=== PATIENT | female | born 1925 | race Caucasian/White ===

== ENCOUNTER 2017-01-03 13:46 | Inpatient (IN) | payer MEDICARE, BC ==
--- NOTE | ~2017-01-03 | NM18 ---
[facility] A Service of [facility] & [facility] RADIOLOGY TEXT RESULTS PATIENT: DARIAN DARBY LOCATION: [facility] 230-01 : [birth year] UNIT #: [id number] AGE: [address]: Claudia Powers MD SEX: F ORDER DR: [id number] [facility] [address]. [place], [place] [address] [id number] MR#: [id number] Acc #: [id number] NAME: DARIAN DARBY : 1925 SEX: F STUDY DATE/TIME: 01/05/2017 9:29 UNIT: [facility] ROOM: 230 STUDY DESCRIPTION: NM GI Bleeding Scan Attending Physician: Claudia Powers M.D. Ordering Physician: Claudia Powers M.D. Primary Care Physician: Shan Ruano II, M.D. MEDICAL IMAGING REPORT This report is preliminary unless electronic signature is present EXAM Tagged red blood cell scan. INDICATION Bloody stool with clots. This started 2 days ago, and the patient has had 3 recurrent bouts. The patient was brought to the emergency room today. TECHNIQUE Patient was administered 26.5 mCi of technetium 99m labeled red blood cells and sequential images were obtained over the abdomen. FINDINGS No convincing evidence of mobile radiotracer accumulation is seen to suggest active GI bleeding at this time. Radiotracer accumulation appears physiologic. IMPRESSION No convincing evidence of active GI bleeding at this time. Dictated by... Margy Reynolds M.D. THIS IS AN ELECTRONICALLY VERIFIED REPORT Margy Reynolds M.D. at 01/05/2017 5:53 PM AFF/tiffani TD: 01/05/2017 16:16 JOB #: [id number] MEDICAL IMAGING REPORT Page 1 of 1 COPY
--- NOTE | ~2017-01-03 | CR72 ---
[facility] A Service of [facility] & [facility] RADIOLOGY TEXT RESULTS PATIENT: DARIAN DARBY LOCATION: [address]09-07 : [birth year] UNIT #: [id number] AGE: [address]: Claudia Powers MD SEX: F ORDER DR: [id number] [facility] [address]. [place], [place] [address] [id number] I MR#: [id number] Acc #: [id number] NAME: DARIAN DARBY : 1925 SEX: F STUDY DATE/TIME: 01/03/2017 18:03 UNIT: [facility] ROOM: [facility] STUDY DESCRIPTION: CR Chest Single View Portable Attending Physician: Yahaira Solomon M.D. Ordering Physician: Yahaira Solomon M.D. Primary Care Physician: Shan Ruano II, M.D. MEDICAL IMAGING REPORT This report is preliminary unless electronic signature is present EXAM Portable chest INDICATIONS Cough and chest congestion today. Shortness of air today. TECHNIQUE Frontal view chest. FINDINGS Heart size within normal limits. Linear scarring or atelectasis in the medial left lung base. Otherwise, lungs are clear. No visible pleural fluid or pneumothorax. IMPRESSION Linear atelectasis or scar in the left lung base. Otherwise, no active process. Dictated by... Keyshawn Trujillo M.D. THIS IS AN ELECTRONICALLY VERIFIED REPORT Keyshawn Trujillo M.D. at 01/04/2017 2:25 PM EED/pcl TD: 01/03/2017 22:13 JOB #: [id number] MEDICAL IMAGING REPORT Page 1 of 1 COPY
--- NOTE | ~2017-01-03 | CO ---
Unit #: [id number] #: [id number] Patient: DARIAN DARBY [id number] [facility]. [place], [place] [address] [id number] I MR#: [id number] NAME: DARIAN DARBY ROOM: 230 Age: 89 Sex: F Admission Date: 01/03/2017 : 1925 Attending Physician: Claudia Powers M.D. Primary Care Physician: Shan Ruano II, M.D. Consultation Date: 01/03/2017 CONSULTATION REPORT CHIEF COMPLAINT GI bleed. HISTORY OF PRESENT ILLNESS This is an 89-year-old lady, who is extremely hard of hearing. Most of the history was obtained from the family. She has an approximately 12-hour history of dark stools with some old blood in it. She initially presented to [facility] and was transferred here, so that workup could be completed. She has recently been taking ibuprofen and aspirin. She has had one prior episode of this approximately 5 years ago and underwent upper and lower endoscopy. Upper endoscopy showed gastritis at that time. She denies any abdominal pain, nausea, or vomiting. PAST SURGICAL HISTORY Significant for cholecystectomy, appendectomy, and hysterectomy. PAST MEDICAL HISTORY She has a history of PE, but is no longer on anticoagulants. She has also sustained a hip fracture, which required her to move into a chcf and she has reflux, hypertension, and congestive heart failure. SOCIAL HISTORY She denies any tobacco or alcohol use, and again she is in a wheelchair in a chcf. MEDICATIONS Please see med rec list for list of medications. FAMILY HISTORY Negative for cancer. REVIEW OF SYSTEMS Negative for weight loss or jaundice and she has had some fatigue and again is hard of hearing. Otherwise, it is as above. PHYSICAL EXAMINATION VITAL SIGNS: Her heart rate is in the 100s. Her systolic blood pressure is 120s. GENERAL: She is in no acute distress. HEENT: Pupils are equal, react to light, and accommodation, and her extraocular muscles are intact. NECK: Without masses or bruits. LUNGS: Show good breath sounds bilaterally with equal air exchange. Unit #: [id number] #: [id number] Patient: DARIAN DARBY CARDIAC: Shows regular rate and rhythm without murmur. ABDOMEN: Soft, nondistended, and nontender with no organomegaly. EXTREMITIES: Without edema or cyanosis. NEUROLOGIC: She is alert and oriented. There are no focal deficits. DIAGNOSTIC STUDIES LABORATORY RESULTS: Hemoglobin is 8. OVERALL IMPRESSION This is an 89-year-old lady, who has severe anemia and evidence of a GI bleed that clinically is stable. She is going to have serial hemoglobins and we will resuscitate her overnight and plan on upper endoscopy in the morning. Obviously, we will do this sooner if she shows any ongoing bleeding. Dictated by... Darshan Obregon III, M.D. VCL/tyler TD: 01/04/2017 22:37 JOB #: [id number] CONSULTATION REPORT Page 1 of 1 X Darshan Obregon III, MD CONSULTATION REPORT
--- NOTE | ~2017-01-03 | EKG ---
PATIENT: DARIAN DARBY UNIT #: [id number] Ventricular Rate: 106 BPM Atrial Rate: 106 BPM P-R Interval: 186 ms QRS Duration: 118 ms Q-T Interval: 352 ms QTC Calculation(Bezet): 467 ms P Orlando: 66 degrees Calculated R Orlando: -26 degrees Calculated T Orlando: 74 degrees Diagnosis Line: Sinus tachycardia Diagnosis Line: Nonspecific ST and T wave abnormality Diagnosis Line: Abnormal ECG Diagnosis Line: No previous ECGs available Diagnosis Line: Confirmed by ARTIE KNOWLES MD ([id number]) on 01/04/2017 Diagnosis Line: 6:39:29 PM INTERPRETING MD: ELENI RUSSELL
--- NOTE | ~2017-01-03 | DS ---
Unit #: [id number] #: [id number] Patient: DARIAN DARBY [id number] [facility] [address]. [place], [place] [address] [id number] I MR#: [id number] NAME: DARIAN DARBY ROOM: 230 Age: 89 Sex: F Admission Date: 01/03/2017 : 1925 Discharge Date: 01/06/2017 Attending Physician: Claudia Powers M.D. Primary Care Physician: Shan Ruano II, M.D. DISCHARGE SUMMARY REASON FOR ADMISSION Rectal bleeding/diarrhea. HISTORY OF PRESENT ILLNESS/HOSPITAL COURSE The patient is a very pleasant 89-year-old female with an underlying history of hypertension, hyperlipidemia, heart failure, prior history of PE on chronic anticoagulation, GERD, who essentially is bedbound with a history of severe chronic immobility syndrome for almost two years who presented secondary to bright red blood per rectum. Apparently, she was seen at an outside facility, [facility], and subsequently transferred to [facility] for further evaluation. Initial hemoglobin was noted to be 8.5. Consultation was subsequently placed to [facility] for evaluation. Through this hospital course, the patient underwent routine labs. Today, at time of discharge, her hemoglobin currently stands at 8.8. She has had no episodes of bright red blood per rectum while she has been here. She did undergo an upper GI endoscopy while here per surgical services and did reveal mild gastritis but no acute bleeding was noted. Patient also underwent tagged RBC bleeding scan as well through nuclear medicine which was negative. This was performed on 01/05/2017. Secondary to associated comorbid conditions, as well as quality of life, consideration was given for colonoscopy; however, because of above, it was elected the patient should not have colonoscopy while here. This was discussed extensively with patient's son and daughter. Clinically speaking, she is stable for discharge. We will make appropriate arrangements for her to be transitioned back to the [facility]. At time of discharge, her aspirin will be discontinued. Overall, her prognosis is guarded long-term. Clinically speaking, she is currently stable but should she have recurrent episodes consideration should be given for hospice care moving forward. FINAL DISCHARGE DIAGNOSES 1. Bright red blood per rectum. 2. Mild gastritis. 3. Iron-deficiency anemia with decreased MCV at 69. 4. Severe chronic immobility syndrome. Essentially bedbound for almost 18 months. 5. Prior history of left lower extremity DVT. Unit #: [id number] #: [id number] Patient: DARIAN DARBY 6. Prior history of pulmonary embolism. 7. Prior history of heart failure with unclear ejection fraction. 8. Hyperlipidemia. 9. Hypertension. 10. Morbid obesity. FINAL DISCHARGE MEDICATIONS 1. Lasix 40 mg p.o. b.i.d. 2. Zaroxolyn 5 mg Sunday and . 3. Ferrous gluconate 324 mg p.o. daily. 4. Multivitamin daily. 5. Diclofenac topical b.i.d. to knees. 6. Aldactone 25 mg daily. 7. Omeprazole 20 mg p.o. daily. 8. Potassium chloride 20 mEq p.o. daily. DISCHARGE CONDITION Stable. DISCHARGE DISPOSITION Long-term care. Dictated by... Neha Valera/jairo TD: 01/06/2017 13:49 JOB #: [id number] DISCHARGE SUMMARY Page 1 of 1 X Claudia Powers MD X DISCHARGE SUMMARY
--- NOTE | ~2017-01-03 | HP ---
Unit #: [id number] #: [id number] Patient: DARIAN DARBY [id number] [address] [address] [id number] I MR#: [id number] NAME: DARIAN DARBY ROOM: [facility] Age: 89 Sex: F Admission Date: 01/03/2017 : 1925 Attending Physician: Yahaira Solomon M.D. Primary Care Physician: Shan Ruano II, M.D. HISTORY AND PHYSICAL CHIEF COMPLAINT Rectal bleeding, diarrhea. HISTORY OF PRESENT ILLNESS The patient is an 89-year-old female with past medical history of hypertension, hyperlipidemia, CHF, PE, GERD who presented to [facility] for evaluation of the above. History is obtained from chart review and discussion with ER staff as well as from the patient and her daughter who was at bedside. Apparently, the patient was in her usual state of health until the day of admission when she had bloody diarrhea. She reportedly had three bouts of bloody diarrhea at the shelter with clots. She was sent to the emergency department for further evaluation. The patient denies any abdominal pain. No chest pain. No fever. She has had a cough over the past couple of days. She has also had loose stool for the past one to two days but no blood until today. In the emergency department, initial pulse and blood pressure were 124 and 108/63 respectively. Initial hemoglobin was 8.5. Rectal exam was heme positive. She was transferred to [facility] for admission. PAST MEDICAL HISTORY 1. Admission to [facility] in June 2015 following a fall with hip fracture. She underwent surgery during that admission. 2. Hypertension. 3. Hyperlipidemia. 4. Congestive heart failure with unknown ejection fraction. 5. PE, the patient was previously on Coumadin. She was then transitioned to Eliquis and has been on only aspirin for the past six to eight months. 6. Gastroesophageal reflux disease. PAST SURGICAL HISTORY 1. Hip surgery. 2. Thyroid surgery. 3. Hysterectomy. 4. Cholecystectomy. 5. Appendectomy. 6. EGD and colonoscopy in 2011 at [facility]. Per the family, the colonoscopy was negative. EGD showed gastritis and she was placed on omeprazole at that time. Unit #: [id number] #: [id number] Patient: DARIAN DARBY SOCIAL HISTORY The patient is currently at a shelter. She is mostly in a wheelchair. There is no tobacco or alcohol use. CODE STATUS Her code status is a do not resuscitate. FAMILY HISTORY Noncontributory secondary to age. ALLERGIES There are no allergies known. HOME MEDICATIONS 1. Aspirin 81 mg daily. 2. Furosemide 40 mg twice daily. 3. Aldactone 25 mg daily. 4. Iron daily. 5. Lactulose unknown frequency. 6. Miconazole cream daily. 7. Potassium 20 mEq daily. 8. Omeprazole 20 mg daily. 9. Bisacodyl 5 mg daily p.r.n. 10. Diclofenac topically daily. 11. Milk of Magnesia at bedtime p.r.n. 12. Multivitamin daily. REVIEW OF SYSTEMS A complete review of systems is negative except as indicated in the HPI. DIAGNOSTIC STUDIES LABORATORY: Comprehensive metabolic panel notable for glucose of 131, BUN and creatinine 25 and 0.85 respectively. Complete blood count notable for white blood cell count of 14, hemoglobin and hematocrit are 8.1 and 26.4 respectively, MCV 64.6, RDW 23.3. I was told that hemoglobin was initially 8.4, but looks like repeat was 8.1. PHYSICAL EXAMINATION VITAL SIGNS: Temperature 97.9, pulse 124, respirations 20, blood pressure 108/63, oxygen saturation 98% on room air. GENERAL: The patient is a very pleasant female who is awake and alert in no acute distress. HEENT: The head is atraumatic. Conjunctivae are somewhat pale. Mucous membranes are moist. NECK: Supple. Trachea is midline. CARDIOVASCULAR: Regular rate and rhythm. LUNGS: Clear to auscultation bilaterally with no increased work of breathing. ABDOMEN: Soft, nontender with bowel sounds present in all four quadrants. RECTAL: Heme positive per my discussion with ER staff. EXTREMITIES: Show edema. They are nontender. NEUROLOGIC: The patient is awake and alert. She is oriented x3. She follows commands. PSYCHIATRIC: Mood and affect are normal. The patient is cooperative. SKIN: Generally pale. ASSESSMENT The patient is a 89-year-old female with: Unit #: [id number] #: [id number] Patient: DARIAN DARBY 1. Gastrointestinal bleed: The patient is currently receiving 2 units of packed red blood cells. 2. Acute blood loss anemia: Patient's hemoglobin per record review was 9.2 on October 11 and December 20, 2016. It is 8.5 today but did drop to 8.1. 3. Hypertension. 4. Hyperlipidemia. 5. Congestive heart failure with unknown ejection fraction. 6. History of pulmonary embolus not on chronic anticoagulation. 7. Gastroesophageal reflux disease. PLAN 1. Admit to intensive care unit. 2. NPO for endoscopy. 3. Consult Dr. Obregon regarding gastrointestinal bleed. 4. Hemoglobin and hematocrit one hour after transfusion q.6 hours. 5. Iron studies, B12, and folate. 6. Check EKG and cardiac enzymes. 7. Repeat labs now including INR. 8. SCDs for deep venous thrombosis prophylaxis. 9. Protonix for gastrointestinal prophylaxis. 10. P.r.n. Zofran. 11. Hold aspirin. 12. Regarding code status, the patient is a do not resuscitate. Thirty one minutes critical care time spent in the care of this patient (3:30 to 4:01 p.m.). Dictated by Neha Ryan/hari TD: 01/03/2017 17:22 JOB #: [id number] HISTORY AND PHYSICAL Page 1 of 1 X Yahaira Solomon MD X HISTORY AND PHYSICAL
--- NOTE | ~2017-01-03 | OR ---
Unit #: [id number] #: [id number] Patient: DARIAN DARBY [id number] [address] [address] [id number] I MR#: [id number] NAME: DARIAN DARBY ROOM: 230 Date of Procedure: 01/04/2017 Admission Date: 01/03/2017 Surgeon: Brian Sepulveda M.D. : 1925 Attending Physician: Claudia Powers M.D. Primary Care Physician: Shan Ruano II, M.D. OPERATIVE REPORT PREOPERATIVE DIAGNOSES 1. Anemia. 2. Rectal bleeding. POSTOPERATIVE DIAGNOSES 1. Anemia. 2. Rectal bleeding. PROCEDURE PERFORMED Esophagogastroduodenoscopy. ANESTHESIA Monitored anesthesia care. FINDINGS The patient was found to have mild gastritis. No blood was present in the stomach. SPECIMENS None. COMPLICATIONS None apparent. CONDITION The patient tolerated the procedure well. INDICATIONS FOR PROCEDURE The patient is a 89-year-old white female, who presents at this time with anemia as well as maroon-colored stools. She presents at this time for evaluation by upper endoscopy. DESCRIPTION OF PROCEDURE After obtaining informed consent, the patient, who was in the intensive care unit, was placed in the left lateral decubitus position. After adequate monitored anesthesia care, had the endoscope placed through the mouth in the upper esophagus under direct vision. It was advanced to the second portion of the duodenum without difficulty with the lumen always in view. The duodenum was normal as was the duodenal bulb. The pylorus opened normally. There was no distal gastritis present. No ulcers were seen. There was no blood present in the duodenum or in the stomach. On retroflexion back to the GE junction, there was no hiatal hernia seen and Unit #: [id number] #: [id number] Patient: DARIAN ADRBY no abnormality found in the proximal third, middle third, or incisura. On pulling back above the GE junction, there was no stenosis, stricture, or neoplasm seen. The remaining portion of the esophagus was within normal limits. Laryngeal structures were grossly normal as viewed from above. The scope was removed without difficulty. The patient tolerated the procedure well. RECOMMENDATIONS Proceed with prep for colonoscopy. All results were fully discussed with the patient's daughter. Dictated by... Neha Capps/tyler TD: 01/05/2017 04:13 JOB #: [id number] CC: [facility] OPERATIVE REPORT Page 1 of 1 X Brian Sepulveda MD X PROCEDURE OPERATIVE NOTE
[2017-01-03] MEDS ORDERED: ASPIRIN81 M2 PO (15:27)
[2017-01-03] MEDS ORDERED: ALDACTONE25 MG PO (15:28)
[2017-01-03] MEDS ORDERED: FUROSEMIDE40 MG PO (15:28)
[2017-01-03] MEDS ORDERED: LACTULOSE10 GM/15 M PO (15:29)
[2017-01-03] MEDS ORDERED: FERREX 150 PLU1 EACH PO (15:29)
[2017-01-03] MEDS ORDERED: K-DUR20 ME1 PO (15:31)
[2017-01-03] MEDS ORDERED: BAZA EXT (15:31)
[2017-01-03] MEDS ORDERED: OMEPRAZOLE20 M1 PO (15:32)
[2017-01-03] MEDS ORDERED: BISACODYL EC5 M1 PO (15:33)
[2017-01-03] MEDS ORDERED: VOLTAREN100 GM TOP (15:34)
[2017-01-03] MEDS ORDERED: MILK OF MAGNES311 MG PO (15:36)
[2017-01-03] MEDS ORDERED: MULTIVITAMINS1 EAC3 ×2 (15:37→16:32)
[2017-01-03] MEDS ORDERED: ZAROXYLYN PO (16:45)
[2017-01-03 18:38] LABS: PROTHROMBIN TIME (PATIENT) 10.9 SECONDS (9.6-11.5)
[2017-01-03 18:44] LABS: BASOPHIL# 0.1 X10e3 (0-0.3); BASOPHIL% 0.6 % (0-2.5); DIFF IND YES; EOSINOPHIL# 0.1 X10e3 (0-0.7); HEMATOCRIT 30.5 % (35.0-45.0); HEMOGLOBIN 9.5 gm/dL (12.0-16.0); LYMPHOCYTE# 1.8 X10e3 (1.0-3.5); LYMPHOCYTE% 14.4 % (17.0-45.0); MEAN CELL VOLUME 68.6 FL (83-96); MEAN CORPUSCULAR HEMOGLOBIN 21.3 PG (28-34); MEAN CORPUSCULAR HGB CONC 31.1 g/dL (30-36); MEAN PLATELET VOLUME 7.5 FL (6.5-11.5); MONOCYTE# 0.7 X10e3 (0-1.0); MONOCYTE% 5.5 % (3.0-12.0); NEUTROPHIL# 9.9 X10e3 (1.5-7.1); NEUTROPHIL% 78.5 % (40-75); PLATELET COUNT 457 X10e3 (140-420); RED BLOOD COUNT 4.45 X10e (3.90-5.30); RED CELL DISTRIBUTION WIDTH 25.4 % (11.0-15.5); WHITE BLOOD COUNT 12.6 X10e3 (4.0-10.5)
[2017-01-03 18:50] LABS: ALBUMIN SERUM 3.4 g/dL (3.5-5.0); BILIRUBIN,TOTAL 1.2 mg/dL (0.2-2.0); CALCIUM SERUM 8.9 mg/dL (8.4-10.2); CREATININE SERUM 0.8 mg/dL (0.6-1.4); GLOM FILT RATE Estimated 65.4 mL/min (>60)
[2017-01-03 18:52] LABS: CK TOTAL 21 IU/L (26-140)
[2017-01-03 19:09] LABS: IRON SERUM 51 ug/dL (28-170); TOTAL IRON BINDING CAPACITY 350 ug/dL (269-535); TRANSFERRIN 250 mg/dL (192-382); TRANSFERRIN SATURATION 15 % (20-50)
[2017-01-03 19:10] LABS: ANISOCYTOSIS SL; PLATELET ESTIMATE INCREASED (NORMAL); POIKILOCYTOSIS SL; RBC NORMAL YES
[2017-01-03 19:20] LABS: FERRITIN 28 ng/mL (11-307)
[2017-01-03 19:24] LABS: FOLATE (FOLIC ACID) >23.6 ng/mL (>5.8)
[2017-01-03 23:13] LABS: CK TOTAL 24 IU/L (26-140)
[2017-01-04 00:40] LABS: HEMATOCRIT 30.1 % (35.0-45.0); HEMOGLOBIN 9.4 gm/dL (12.0-16.0)
[2017-01-04 05:10] LABS: BASOPHIL# 0.1 X10e3 (0-0.3); EOSINOPHIL# 0.3 X10e3 (0-0.7); EOSINOPHIL% 2.4 % (0.0-7.0); HEMATOCRIT 28.4 % (35.0-45.0); HEMOGLOBIN 8.9 gm/dL (12.0-16.0); LYMPHOCYTE% 16.6 % (17.0-45.0); MEAN CELL VOLUME 68.7 FL (83-96); MEAN CORPUSCULAR HEMOGLOBIN 21.6 PG (28-34); MEAN CORPUSCULAR HGB CONC 31.5 g/dL (30-36); MEAN PLATELET VOLUME 7.5 FL (6.5-11.5); MONOCYTE# 0.8 X10e3 (0-1.0); NEUTROPHIL# 8.7 X10e3 (1.5-7.1); PLATELET COUNT 424 X10e3 (140-420); RED BLOOD COUNT 4.13 X10e (3.90-5.30); RED CELL DISTRIBUTION WIDTH 25.4 % (11.0-15.5); WHITE BLOOD COUNT 11.9 X10e3 (4.0-10.5)
[2017-01-04 05:15] LABS: DIFF IND NO
[2017-01-04 05:24] LABS: PROTHROMBIN TIME (PATIENT) 10.9 SECONDS (9.6-11.5)
[2017-01-04 05:36] LABS: CK TOTAL 23 IU/L (26-140)
[2017-01-04 05:55] LABS: ALBUMIN SERUM 3.1 g/dL (3.5-5.0); BILIRUBIN,TOTAL 0.6 mg/dL (0.2-2.0); BUN/CREATININE RATIO 31.25; CALCIUM SERUM 8.8 mg/dL (8.4-10.2); CREATININE SERUM 0.8 mg/dL (0.6-1.4); GLOM FILT RATE Estimated 65.4 mL/min (>60); POTASSIUM 4.2 mmol/L (3.5-5.1); PROTEIN TOTAL SERUM 6.2 g/dL (6.0-8.3)
[2017-01-05 06:27] LABS: BASOPHIL# 0.1 X10e3 (0-0.3); BASOPHIL% 0.7 % (0-2.5); EOSINOPHIL# 0.4 X10e3 (0-0.7); EOSINOPHIL% 2.8 % (0.0-7.0); HEMATOCRIT 28.2 % (35.0-45.0); HEMOGLOBIN 8.7 gm/dL (12.0-16.0); LYMPHOCYTE# 1.8 X10e3 (1.0-3.5); LYMPHOCYTE% 14.3 % (17.0-45.0); MEAN CELL VOLUME 69.4 FL (83-96); MEAN CORPUSCULAR HEMOGLOBIN 21.4 PG (28-34); MEAN CORPUSCULAR HGB CONC 30.9 g/dL (30-36); MONOCYTE# 0.8 X10e3 (0-1.0); MONOCYTE% 6.1 % (3.0-12.0); NEUTROPHIL# 9.5 X10e3 (1.5-7.1); NEUTROPHIL% 76.1 % (40-75); PLATELET COUNT 444 X10e3 (140-420); RED BLOOD COUNT 4.07 X10e (3.90-5.30); RED CELL DISTRIBUTION WIDTH 25.8 % (11.0-15.5); WHITE BLOOD COUNT 12.5 X10e3 (4.0-10.5)
[2017-01-05 06:35] LABS: DIFF IND NO
[2017-01-05 07:00] LABS: BUN/CREATININE RATIO 23.33; CALCIUM SERUM 8.8 mg/dL (8.4-10.2); CREATININE SERUM 0.9 mg/dL (0.6-1.4); GLOM FILT RATE Estimated 56.7 mL/min (>60); POTASSIUM 3.5 mmol/L (3.5-5.1)
[2017-01-06 06:25] LABS: BASOPHIL# 0.1 X10e3 (0-0.3); BASOPHIL% 0.8 % (0-2.5); EOSINOPHIL# 0.3 X10e3 (0-0.7); EOSINOPHIL% 3.1 % (0.0-7.0); HEMATOCRIT 28.4 % (35.0-45.0); HEMOGLOBIN 8.8 gm/dL (12.0-16.0); LYMPHOCYTE# 1.7 X10e3 (1.0-3.5); LYMPHOCYTE% 15.7 % (17.0-45.0); MEAN CELL VOLUME 69.9 FL (83-96); MEAN CORPUSCULAR HEMOGLOBIN 21.6 PG (28-34); MEAN PLATELET VOLUME 7.1 FL (6.5-11.5); MONOCYTE# 0.8 X10e3 (0-1.0); MONOCYTE% 7.4 % (3.0-12.0); NEUTROPHIL# 7.9 X10e3 (1.5-7.1); PLATELET COUNT 459 X10e3 (140-420); RED BLOOD COUNT 4.07 X10e (3.90-5.30); RED CELL DISTRIBUTION WIDTH 26.2 % (11.0-15.5); WHITE BLOOD COUNT 10.8 X10e3 (4.0-10.5)
[2017-01-06 06:28] LABS: DIFF IND YES
[2017-01-06 07:00] LABS: PLATELET ESTIMATE NORMAL (NORMAL)
[2017-01-06 07:01] LABS: HYPOCHROMIA SL; MICROCYTOSIS MOD; OVALOCYTES PRESENT; POIKILOCYTOSIS SL; POLYCHROMASIA SL
[2017-01-06 07:02] LABS: BUN/CREATININE RATIO 18.88; CREATININE SERUM 0.9 mg/dL (0.6-1.4); ELLIPTOCYTES PRESENT; GLOM FILT RATE Estimated 56.7 mL/min (>60); POTASSIUM 3.9 mmol/L (3.5-5.1); SCHISTOCYTES PRESENT
== END 2017-01-06 19:04 | DRG 378 ==
LOC: C2A 15:17 → UNDOADMIN 15:17 → CICCU2 15:21 → C2A 15:21 → CICCU2 16:00 → UNDOADMIN 16:00 → C2A 16:12 → CICCU2 16:12 → C2A 01-04 15:55 → CICCU2 01-04 15:55 → C2A 01-06 19:04
PROVIDERS: Family Medicine; Surgery
PROC: 0DJ08ZZ Inspection of Upper Intestinal Tract, Via Natural or Artificial Opening Endoscopic (ICD-10-PCS; principal; 2017-01-04 12:00)
DX: K62.5 Hemorrhage of anus and rectum (principal); D62 Acute posthemorrhagic anemia; I11.0 Hypertensive heart disease with heart failure; I50.9 Heart failure, unspecified; K29.70 Gastritis, unspecified, without bleeding; D50.9 Iron deficiency anemia, unspecified; K21.9 Gastro-esophageal reflux disease without esophagitis; E03.9 Hypothyroidism, unspecified; E78.5 Hyperlipidemia, unspecified; Z79.01 Long term (current) use of anticoagulants; Z86.711 Personal history of pulmonary embolism; Z86.718 Personal history of other venous thrombosis and embolism; M62.3 Immobility syndrome (paraplegic); E66.01 Morbid (severe) obesity due to excess calories; H91.90 Unspecified hearing loss, unspecified ear; Z90.49 Acquired absence of other specified parts of digestive tract; Z90.710 Acquired absence of both cervix and uterus; Z96.641 Presence of right artificial hip joint; Z79.82 Long term (current) use of aspirin; Z68.36 Body mass index [BMI] 36.0-36.9, adult
CPT/HCPCS: 71010; 78278; 80048; 80053; 82550; 82607; 82728; 82746; 83540; 83550; 83735; 84484; 85014; 85018; 85025; 85610; 93005; A9560; C9113; J1940; J3475